=== PATIENT | female | born 1995 | race Hispanic/Latino ===

== ENCOUNTER 2018-11-22 23:25 | Emergency (ER) | payer SELFPAY ==
--- NOTE | 2018-11-22 23:50 | EDPHYS ---
Physician Documentation [facility] Name: Matthew Vásquez Age: 23 yrs Sex: Female : 1995 Arrival Date: 11/22/2018 Time: 23:26 Bed 6 Private MD: ED Physician Nikko Mason HPI: 11/22 23:47 This 23 yrs old Female presents to ER via Ambulatory with complaints of nh Foreign body In Vagina - possible. 23:47 The patient presents with possible tampon still in. Onset: The symptoms/episode nh began/occurred this morning. Modifying factors: The symptoms are alleviated by nothing, the symptoms are aggravated by nothing. Associated signs and symptoms: The patient has no apparent associated signs or symptoms. Severity of symptoms:. The patient has not experienced similar symptoms in the past. Patient states that she put a tampon in this morning and she cannot find it. She doesn't know if she forgot to put one in or if it still inside her vagina. 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 - Social history:: Smoking status: Patient/guardian denies using tobacco. - Ebola Screening: : No symptoms or risks identified at this time. ROS: 23:47 Constitutional: Negative for fever, chills, and weight loss, Eyes: Negative for injury, nh pain, redness, and discharge, ENT: Negative for injury, pain, and discharge, Neck: Negative for injury, pain, and swelling, Cardiovascular: Negative for chest pain, palpitations, and edema, Respiratory: Negative for shortness of breath, cough, wheezing, and pleuritic chest pain, Abdomen/GI: Negative for abdominal pain, nausea, vomiting, diarrhea, and constipation, Back: Negative for injury and pain, MS/Extremity: Negative for injury and deformity, Skin: Negative for injury, rash, and discoloration, Neuro: Negative for headache, weakness, numbness, tingling, and seizure, Psych: Negative for depression, anxiety, suicide ideation, homicidal ideation, and hallucinations, Allergy/Immunology: Negative for hives, rash, and allergies, Endocrine: Negative for neck swelling, polydipsia, polyuria, polyphagia, and marked weight changes, Hematologic/Lymphatic: Negative for swollen nodes, abnormal bleeding, and unusual bruising. 23:47 : Positive for possible FB. Exam: 23:47 Constitutional: This is a well developed, well nourished patient who is awake, alert, nh and in no acute distress. Head/Face: Normocephalic, atraumatic. Eyes: Pupils equal round and reactive to light, extra-ocular motions intact. Lids and lashes normal. Conjunctiva and sclera are non-icteric and not injected. Cornea within normal limits. Periorbital areas with no swelling, redness, or edema. ENT: Nares patent. No nasal discharge, no septal abnormalities noted. Tympanic membranes are normal and external auditory canals are clear. Oropharynx with no redness, swelling, or masses, exudates, or evidence of obstruction, uvula midline. Mucous membranes moist. Neck: Trachea midline, no thyromegaly or masses palpated, and no cervical lymphadenopathy. Supple, full range of motion without nuchal rigidity, or vertebral point tenderness. No Meningismus. Chest/axilla: Normal chest wall appearance and motion. Nontender with no deformity. No lesions are appreciated. Cardiovascular: Regular rate and rhythm with a normal S1 and S2. No gallops, murmurs, or rubs. Normal PMI, no JVD. No pulse deficits. Respiratory: Lungs have equal breath sounds bilaterally, clear to auscultation and percussion. No rales, rhonchi or wheezes noted. No increased work of breathing, no retractions or nasal flaring. Abdomen/GI: Soft, non-tender, with normal bowel sounds. No distension or tympany. No guarding or rebound. No evidence of tenderness throughout. Back: No spinal tenderness. No costovertebral tenderness. Full range of motion. Pelvic Exam: Normal external genitalia. Speculum exam with closed cervical os, no discharge or bleeding noted. Bimanual exam with normal adnexa, no adnexal or cervical motion tenderness. Normal uterus. Female : Normal external genitalia. Skin: Warm, dry with normal turgor. Normal color with no rashes, no lesions, and no evidence of cellulitis. MS/ Extremity: Pulses equal, no cyanosis. Neurovascular intact. Full, normal range of motion. Vital Signs: 23:35 BP 126 / 91; Pulse 95; Resp 18; Temp 98.6; Pulse Ox 98% on R/A; Weight 58.06 kg; Height ea 5 ft. 7 in. (170.18 cm); Pain 0/10; 23:35 Body Mass Index 20.05 (58.06 kg, 170.18 cm) ea MDM: 23:29 Patient medically screened. sc 23:47 Data reviewed: vital signs, nurses notes, I have discussed the patient's sc presentation/case with the attending Emergency Department Physician; and as a result, I will discharge patient. Counseling: I had a detailed discussion with the patient and/or guardian regarding: the historical points, exam findings, and any diagnostic results supporting the discharge/admit diagnosis, the need for outpatient follow up, to return to the emergency department if symptoms worsen or persist or if there are any questions or concerns that arise at home. Administered Medications: No medications were administered Disposition: 11/22/18 23:49 Discharged to Home. Impression: Person with feared health complaint in whom no diagnosis is made. - Condition is Stable. - Discharge Instructions: Vaginal Foreign Body. - Medication Reconciliation Form, Thank You Letter form. - Follow up: Private Physician; When: 2 - 3 days; Reason: Recheck today's complaints. - Problem is new. - Symptoms are unchanged. Addendum: 11/27/2018 11:26 Co-signature as Attending Physician, Nikko Mason MD I agree with the assessment and c whitman plan of care. Signatures: Nikko Mason MD MD cha Cronk, Niki, CLIPPER OPERATOR CLIPPER OPERATOR sc Narda Edgar RN RN ea Corrections: (The following items were deleted from the chart) 11/22 23:42 23:40 Home Meds: None; ea ea 23:59 23:49 11/22/2018 23:49 Discharged to Home. Impression: Person with feared health ea complaint in whom no diagnosis is made. Condition is Stable. Forms are Medication Reconciliation Form, Thank You Letter, Antibiotic Education, Prescription Opioid Use. Follow up: Private Physician; When: 2 - 3 days; Reason: Recheck today's complaints. Problem is new. Symptoms are unchanged. sc
--- NOTE | 2018-11-22 23:50 | ER ---
Nurse's Notes [facility] Name: Matthew Vásquez Age: 23 yrs Sex: Female : 1995 Arrival Date: 11/22/2018 Time: 23:26 Bed 6 Private MD: Diagnosis: Person with feared health complaint in whom no diagnosis is made Presentation: 11/22 23:35 Presenting complaint: Patient states: Pt reports she can't remember if she put a tampon ea in last night. Reports she checked for it this AM but was unable to find it. Transition of care: patient was not received from another setting of care. Onset of symptoms was November 22, 2018. Risk Assessment: Do you want to hurt yourself or someone else? Patient reports no desire to harm self or others. Initial Sepsis Screen: Does the patient meet any 2 criteria? No. Patient's initial sepsis screen is negative. Does the patient have a suspected source of infection? No. Patient's initial sepsis screen is negative. Care prior to arrival: None. 23:35 Method Of Arrival: Ambulatory ea 23:35 Acuity: MIYA 4 ea Triage Assessment: 23:35 General: Appears in no apparent distress. Behavior is calm, cooperative, appropriate ea for age. Pain: Denies pain. Neuro: Level of Consciousness is awake, alert, obeys commands, Oriented to person, place, time, situation. Cardiovascular: Patient's skin is warm and dry. Respiratory: Airway is patent Respiratory effort is even, unlabored, Respiratory pattern is regular, symmetrical. GI: No signs and/or symptoms were reported involving the gastrointestinal system. : Denies pain. Derm: Skin is pink, warm \T\ dry. Musculoskeletal: Circulation, motion, and sensation intact. 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 - Social history:: Smoking status: Patient/guardian denies using tobacco. - Ebola Screening: : No symptoms or risks identified at this time. Screenin:35 Abuse screen: Denies threats or abuse. Nutritional screening: No deficits noted. ea Tuberculosis screening: No symptoms or risk factors identified. Fall Risk None identified. Assessment: 23:58 Reassessment: Patient and/or family updated on plan of care and expected duration. Pain ea level reassessed. Patient is alert, oriented x 3, equal unlabored respirations, skin warm/dry/pink. Discharge instructions given to patient, verbalized the understanding of instruction. Vital Signs: 23:35 BP 126 / 91; Pulse 95; Resp 18; Temp 98.6; Pulse Ox 98% on R/A; Weight 58.06 kg; Height ea 5 ft. 7 in. (170.18 cm); Pain 0/10; 23:35 Body Mass Index 20.05 (58.06 kg, 170.18 cm) ea ED Course: 23:26 Patient arrived in ED. am2 23:29 Amparo Baptiste FNP is PHCP. nh 23:29 Nikko Mason MD is Attending Physician. nh 23:34 Narda Edgar, PABLO is Primary Nurse. ea 23:35 Arm band placed on right wrist. Patient placed in an exam room, on a stretcher, on ea pulse oximetry. 23:35 Patient has correct armband on for positive identification. Placed in gown. Bed in low ea position. Call light in reach. Side rails up X 1. 23:39 Triage completed. ea 23:48 Assist provider with pelvic exam: Set up pelvic tray. Performed by Amparo BARONE tl2 Patient tolerated well. no foreign body visualized. Patient did not have IV access during this emergency room visit. Administered Medications: No medications were administered Outcome: 23:49 Discharge ordered by . nh 23:59 Discharged to home ambulatory, with significant other. ea 23:59 Condition: good 23:59 Discharge instructions given to patient, Instructed on discharge instructions, follow up and referral plans. Demonstrated understanding of instructions, follow-up care. 23:59 Patient left the ED. ea Signatures: Amparo Baptiste FNP FNP nh Knox, Taylor, RN RN brit2 Liz Alvarez am2 Narda Edgar RN RN thaddeus Corrections: (The following items were deleted from the chart) 23:42 23:40 Home Meds: None; ea ea
== END 2018-11-22 23:59 | disposition home or self-care (01) ==
LOC: ER 23:25
DX: Z71.1 Person with feared health complaint in whom no diagnosis is made (principal)
CPT/HCPCS: 99283